=== PATIENT | male | born 1955 | race Caucasian/White ===

== ENCOUNTER 2022-03-27 11:18 | Inpatient (IN) | payer BC ==
[2022-03-27] MEDS ORDERED: COZAAR50 M1 PO (11:37)
[2022-03-27] MEDS ORDERED: Coumadin5 MG PO (11:38)
[2022-03-27] MEDS ORDERED: ZOCOR10 MG PO (11:38)
[2022-03-27] MEDS ORDERED: ACID REDUCER20 MG PO (11:39)
[2022-03-27] MEDS ORDERED: VITAMIN C500 M8 PO (11:40)
[2022-03-27] MEDS ORDERED: FLOMAX0.4 MG PO (11:41)
[2022-03-27] MEDS ORDERED: VITAMIN B COMP1 EAC1 PO (11:42)
[2022-03-27] MEDS ORDERED: VITAMIN D325 MCG PO (11:43)
[2022-03-27 11:44] VITALS: BP 133/65
[2022-03-27] MEDS ORDERED: MULTI-VITAMIN1 EACH PO (11:44)
[2022-03-27] MEDS ORDERED: PROZAC20 MG PO (11:45)
[2022-03-27] MEDS ORDERED: ARICEPT5 M1 PO (11:46)
[2022-03-27] MEDS ORDERED: NAMENDA10 MG PO (11:46)
[2022-03-27] MEDS ORDERED: Coumadin7.5 MG PO (11:48)
[2022-03-27] MEDS ORDERED: PROSCAR5 M1 PO (11:48)
[2022-03-27 14:02] LABS: INTERNATIONAL NORM RATIO 4.7 (2.0-3.5)
[2022-03-27 14:10] LABS: BILIRUBIN Negative (Negative); BLOOD 1+ (Negative); CLARITY Clear (Clear); COLOR Yellow (Yellow); GLUCOSE Negative (Negative); KETONE 1+ (Negative); LEUKO ESTERASE 2+ (Negative); NITRITE Negative (Negative)
[2022-03-27 16:47] LABS: BUN 17 mg/dl (9-23); CHLORIDE 108 mmol/L (98-107); POTASSIUM 3.7 mmol/L (3.4-5.1)
[2022-03-27 20:00] VITALS: BP 102/64
[2022-03-28 06:57] LABS: BASO % 0.4 % (0.0-1.0); EOS # 0.2 10*3/uL (0.0-0.4); EOS % 1.9 % (1.0-4.0); HEMATOCRIT 47.5 % (42.0-52.0); LYMPH # 2.3 10*3/uL (1.3-4.4); LYMPH % 23.6 % (27.0-41.0); MEAN CELL VOLUME 93.3 fl (80.0-94.0); MEAN CORPUSCULAR HGB 30.5 pg (27.0-31.0); MEAN CORPUSCULAR HGB CONC 32.6 g/dl (33.0-37.0); MONO # 1.1 10*3/uL (0.1-1.0); MONO % 11.2 % (3.0-9.0); NEUT % 62.5 % (47.0-73.0); PLATELET COUNT AUTOMATED 172 10*3/uL (130-400); RED BLOOD COUNT 5.09 10*6/uL (4.50-5.90); RED CELL DISTRI WIDTH 13.5 % (0-14.5); WHITE BLOOD COUNT 9.6 10*3/uL (4.8-10.8)
[2022-03-28 07:15] LABS: INTERNATIONAL NORM RATIO 6.1 (2.0-3.5)
[2022-03-28 07:44] VITALS: BP 111/65
[2022-03-28 08:32] LABS: VITAMIN D, 25-HYDROXY 44.2 ng/mL (30-100)
[2022-03-28 09:20] LABS: ALKALINE PHOSPHATASE 49 U/L (46-116); BUN 18 mg/dl (9-23); CHLORIDE 105 mmol/L (98-107); CHOLESTEROL 115 mg/dL (<200); LDL CHOLESTEROL 59 mg/dL (9-159); POTASSIUM 4.1 mmol/L (3.4-5.1); SGPT/ALT 24 U/L (10-49); THYROID STIM HORMONE (HS) 2.273 uIU/ml (0.550-4.780); TOTAL PROTEIN 6.4 gm/dL (6.0-8.0); TRIGLYCERIDES 81 mg/dl (<150)
[2022-03-28 20:00] VITALS: BP 109/66
[2022-03-29 06:57] LABS: INTERNATIONAL NORM RATIO 4.2 (2.0-3.5)
[2022-03-29 08:00] VITALS: BP 114/76
[2022-03-29 20:00] VITALS: BP 110/60
[2022-03-30 06:48] LABS: INTERNATIONAL NORM RATIO 2.7 (2.0-3.5)
[2022-03-30 07:35] VITALS: BP 130/88
[2022-03-30 20:00] VITALS: BP 122/60
[2022-03-31 06:54] LABS: INTERNATIONAL NORM RATIO 1.8 (2.0-3.5)
[2022-03-31 07:34] VITALS: BP 101/62
[2022-03-31 20:00] VITALS: BP 107/72
[2022-04-01 07:17] LABS: INTERNATIONAL NORM RATIO 1.5 (2.0-3.5)
[2022-04-01 08:00] VITALS: BP 114/63
[2022-04-01 20:00] VITALS: BP 110/60
[2022-04-02 07:14] VITALS: BP 117/75
[2022-04-02 08:02] LABS: INTERNATIONAL NORM RATIO 1.5 (2.0-3.5)
[2022-04-02 20:00] VITALS: BP 104/64
[2022-04-03 07:14] VITALS: BP 101/60
[2022-04-03 07:19] LABS: INTERNATIONAL NORM RATIO 1.7 (2.0-3.5)
[2022-04-03 20:00] VITALS: BP 150/90
[2022-04-04 07:36] LABS: INTERNATIONAL NORM RATIO 1.8 (2.0-3.5)
[2022-04-04 07:50] VITALS: BP 105/67
[2022-04-04] MEDS ORDERED: FLUVOXAMINE50 MG PO ×2 (09:32)
[2022-04-04] MEDS ORDERED: KLONOPIN2 M1 PO (09:32)
[2022-04-04] MEDS ORDERED: Exelon T (09:32)
[2022-04-04] MEDS ORDERED: CLONAZEPAM1 MG PO (09:32)
[2022-04-04] MEDS ORDERED: MEMANTINE HCL10 MG PO (09:32)
[2022-04-04] MEDS ORDERED: JANTOVEN6 M1 PO (12:10)
[2022-04-04 20:00] VITALS: BP 114/66
[2022-04-05 06:59] LABS: INTERNATIONAL NORM RATIO 2.2 (2.0-3.5)
[2022-04-05 08:01] VITALS: BP 108/65
[2022-04-05 09:39] LABS: BASO # 0.1 10*3/uL (0.0-0.1); BASO % 0.5 % (0.0-1.0); EOS # 0.3 10*3/uL (0.0-0.4); EOS % 2.5 % (1.0-4.0); HEMATOCRIT 44.9 % (42.0-52.0); LYMPH # 2.2 10*3/uL (1.3-4.4); LYMPH % 21.4 % (27.0-41.0); MEAN CELL VOLUME 92.8 fl (80.0-94.0); MEAN CORPUSCULAR HGB 30.6 pg (27.0-31.0); MEAN PLATELET VOLUME 10.8 fl (9.6-12.3); MONO % 9.7 % (3.0-9.0); NEUT # 6.7 10*3/uL (2.3-7.9); PLATELET COUNT AUTOMATED 216 10*3/uL (130-400); RED BLOOD COUNT 4.84 10*6/uL (4.50-5.90); RED CELL DISTRI WIDTH 13.2 % (0-14.5); WHITE BLOOD COUNT 10.3 10*3/uL (4.8-10.8)
[2022-04-05 09:53] LABS: ALKALINE PHOSPHATASE 47 U/L (46-116); BUN 13 mg/dl (9-23); CHLORIDE 104 mmol/L (98-107); POTASSIUM 4.3 mmol/L (3.4-5.1); SGPT/ALT 17 U/L (10-49)
[2022-04-05] MEDS ORDERED: WARFARIN SOD5 MG PO (11:56)
== END 2022-04-05 13:14 | disposition home or self-care (01) | DRG 885 ==
LOC: 3N 11:18
PROVIDERS: Counselor Professional; Internal Medicine; Registered Nurse; ADMIT Psychiatry & Neurology Psychiatry; ATTEND Psychiatry & Neurology Psychiatry
DX: F33.2 Major depressive disorder, recurrent severe without psychotic features (principal); F63.81 Intermittent explosive disorder; D68.51 Activated protein C resistance; G30.9 Alzheimer's disease, unspecified; F02.80 Dementia in other diseases classified elsewhere, unspecified severity, without behavioral disturbance, psychotic disturbance, mood disturbance, and anxiety; N40.0 Benign prostatic hyperplasia without lower urinary tract symptoms; G47.33 Obstructive sleep apnea (adult) (pediatric); F42.9 Obsessive-compulsive disorder, unspecified; I10 Essential (primary) hypertension; Z88.1 Allergy status to other antibiotic agents; Z86.73 Personal history of transient ischemic attack (TIA), and cerebral infarction without residual deficits; Z86.718 Personal history of other venous thrombosis and embolism; Z91.041 Radiographic dye allergy status; Z91.013 Allergy to seafood